=== PATIENT | female | born 1955 | race Caucasian/White ===

== ENCOUNTER 2023-08-26 06:00 | Outpatient (CLI) | payer MEDICARE, SELFPAY ==
--- NOTE | 2023-08-26 06:23 | NM_ITS ---
APPROVED REPORT Exam: Nuclear Stress Test Indication: SOB, CAD, HTN, High cholesterol, Family history Patient Location: Outpatient Stress Tech: Trina Nye [place] Tech:Lanie Rodriguez, ARRT, RT (R)(N) Ht: 5 ft 2 in Wt: 125 lbs Bra Size: 36C HR: 59 bpm BP: 159/60 mmHg BSA: 1.57 m2 Rhythm: NSR TID: 1.22 BMI: 22.8 History: SOB, CAD, HTN, High cholesterol, Family history Procedure: Patient exercised on Fermin protocol 3:50 minutes and sec, resting heart rate 59 bpm, resting blood pressure 159/60 mmHg, with exercise maximum heart rate achived was 134 bpm which is 89 % of the maximum predicted heart rate and blood pressure was 203/64 mmHg. Test was stopped due to SOB. Patient denied any complaint of chest pain. Patient has Fair exercise capacity, achieved 4.6 METs of workload on treadmill, the blood pressure response to exercise was Hypertensive. Cardiac Stress and Resting SPECT Images: Cardiac Stress and Resting SPECT images were obtained using technetium 99m Myoview 30.5 mCi stress and 10.76 mCi at rest. Resting and stress imaging in supine and prone positions demonstrate no evidence of fixed or reversible perfusion defects. There is increase in transient ischemic dilatation ratio (TID 1.22), suggestive of possible multivessel disease or balanced ischemia. Gated imaging demonstrates normal global and regional LV systolic function. LVEF is calculated at 60%. Conclusion: No evidence of fixed or reversible perfusion defects. Increase in transient ischemic dilatation ratio (TID 1.22), suggestive of possible multivessel disease or balanced ischemia. Gated imaging demonstrates normal global and regional LV systolic function. LVEF is calculated at 60%. Of note, the patient had a hypertensive BP response to exercise. Further BP control is recommended. Electronically signed by : Mariola Hallman MD 08/27/2023 12:09:46
--- NOTE | 2023-08-26 07:28 | CA_ITS ---
APPROVED REPORT EXAM: Comprehensive 2D, Doppler, and color-flow Echocardiogram Manga Artist: Calli Whitlock CRT Ht: 5 ft 2 in Wt: 124lbs BSA: 1.56 BP: 142/82 mmHg Indications: Shortness of Breath, CAD, Hyperlipidemia 2D Dimensions LA Volume 38.10 mL LA Volume Index 23.80 mL/m2 (M/F) 16-34 M-Mode Dimensions RVDd 2.81 cm (0.9-2.6) LA Diam 3.46 cm (1.9-4.0) LVDd 3.74 cm (3.5-5.7) LVDs 1.96 cm (3.5-5.7) IVSd 1.25 cm (0.6-1.1) PWd 1.32 cm (0.6-1.1) EF (Teich) 79.70% FS 47.60% EDV (Teich) 59.60 mL TAPSE 2.19 (<1.7) ESV (Teich) 12.10 mL LV Diastology E Decel Time 150 (160-240 msec) E/A Ratio 1.35 MED A' 9.90 cm/s LAT A' 12.90 cm/s Aortic Valve AO Peak GR. 9.40 mmHg Mitral Valve MV E Max Parish. 89.0 (40-130 cm/s) MV A Velocity 66.0 (40-130 cm/s) E/A Ratio 1.35 MV PHT 44.0 ms Pulmonary Valve PV Peak Velocity 106.0 (50-150 cm/s) Tricuspid Valve TR P. Velocity 210.00 cm/s RAP Estimate 10.00 mmHg RVSP 27.60 mmHg Left Ventricle The left ventricle is normal size. The left ventricular systolic function is normal. The left ventricular ejection fraction is within the normal range. There is normal left ventricular wall thickness. There is normal LV segmental wall motion. The left ventricular diastolic function is normal. LVEF is 55%. Right Ventricle The right ventricle is normal size. The right ventricular systolic function is normal. Atria The left atrium size is normal. The right atrium size is normal. There is no Doppler evidence of interatrial shunt. Aortic Valve The aortic valve is mildly thickened. There is no aortic valvular stenosis. Trace aortic regurgitation. Mitral Valve The mitral valve is mildly thickened. No evidence of mitral valve stenosis. Trace mitral regurgitation. Tricuspid Valve The tricuspid valve leaflets are thin and pliable. Trace tricuspid regurgitation. RVSP is normal. Pulmonic Valve The pulmonary valve is normal in structure. Trace pulmonic regurgitation. Great Vessels The aortic root is normal in size. The ascending aorta is not well visualized. IVC is normal in size and collapses >50% with inspiration. Pericardium There is no pericardial effusion. Other Information Study Quality: Fair Conclusion Normal biventricular systolic function. No significant valvular stenosis or regurgitation. Electronically signed by : Mariola Hallman MD 08/30/2023 18:02:24
[2023-08-26] MEDS: ISOTOPE MYOVIEW (PER STUDY) 1 DOSE IV (08:17)
[2023-08-26] MEDS: SODIUM CHLORIDE 0.9% 10ML SYR (RAD ONLY) 10 ML IV ×2 (08:17)
--- NOTE | 2023-08-26 09:00 | CA_ITS ---
APPROVED REPORT Exam: Exercise Treadmill Technologist: Trina Nye Ht: 5 ft 2 in Wt: 125 lbs BSA: 1.57 m2 HR: 55 bpm BP: 159/60 mmHg Rhythm: NSR Indications: R94.31, I25.10 Medical History Medications: Atorvastatin,,,,, Prolia,,,,, Stress Test Details Test: Fermin HR Resting HR: 59 bpm Max Heart Rate (APMHR): 150 bpm Max HR Achieved: 134 bpm Target HR (85% APMHR): 128 bpm % of APMHR: 89 Recovery HR: 74 bpm HR response to stress: Normal HR response to stress BP Resting BP: 159.0/60.0 mmHg Max BP: 203.0/64.0 mmHg Recovery BP: 168.0/66.0 mmHg BP response to stress: Abnormal hypertensive response to stress. ECG Resting ECG: Sinus arrhythmia, bradycardia, rightward axis Stress ECG: < 0.[address] depression Arrhythmia: None Clinical Exercise duration: 03:50 min Highest Stage Achieved: Exercise capacity: 4.6 METs Overall Exercise Capacity for Age: Fair Stress ECG Conclusion The patient was able to exercise for a total of 3 minutes, 15 seconds. She achieved a total of 4.6 METS. She has fair exercise capacity compared to age and sex matched peers. She has normal HR, but exaggerated hypertensive BP, response to exercise. Symptoms: Shortness of air, no chest pain. Arrhythmias/Ectopy: Marked sinus arrhythmia in recovery. ST-T Changes: 0.[address] depression Conclusion: Exercise capacity. Hypertensive BP response to exercise. No evidence of ischemia on ECG at peak stress. Myoview images reported separately. Test Summary REST . . . . . . . Sitting REST 04:26 0.0 0.0 59 . 159/ 60 . . Stage 1 01:00 10.0 1.7 102 . . . . Stage 1 . . . . . . . Shortness of Breath Stage 1 02:00 10.0 1.7 122 . . . . Stage 1 . . . . . . . Stage held Stage 1 . . . . . . . Myoview Injected Stage 1 03:00 10.0 1.7 129 . . . . Stage 1 . . . . . . . Stage resumed Stage 1 03:50 10.0 1.7 133 . . . Stop exercise at 03:50 RECOVERY 01:00 0.0 0.0 101 . . . . RECOVERY 02:00 0.0 0.0 93 . 203/ 64 . . RECOVERY 03:00 0.0 0.0 75 . 203/ 64 . . RECOVERY 04:00 0.0 0.0 71 . 163/ 71 . . RECOVERY 05:00 0.0 0.0 74 . 168/ 66 . . RECOVERY 05:20 0.0 0.0 79 . 168/ 66 . . Electronically signed by : Mariola Hallman MD 08/27/2023 12:07:12
== END 2023-08-26 23:59 ==
LOC: RAD 06:00
PROVIDERS: PCP Physician Assistant; Visit Provider Nurse Practitioner Family
DX: I25.10 Atherosclerotic heart disease of native coronary artery without angina pectoris (principal); R94.31 Abnormal electrocardiogram [ECG] [EKG]; E78.5 Hyperlipidemia, unspecified; R06.09 Other forms of dyspnea; R91.8 Other nonspecific abnormal finding of lung field; Z87.891 Personal history of nicotine dependence
CPT/HCPCS: 78452; 93017; 93018; 93306; A9502

== ENCOUNTER 2023-09-22 11:38 | Outpatient (CLI) | payer MEDICARE, SELFPAY ==
--- NOTE | 2023-09-22 11:39 | CT_ITS ---
APPROVED REPORT Od Grinder Operator: CLINICAL INDICATION Chest Pain TECHNIQUE Image Acquisition: A 128 slice MDCT scanner ([employer]akGlobal[employer] View) was used for data acquisition. A noncontrast coronary calcium scan was performed. A CT attenuation threshold of 130 Hounsfield units (HU) was used for the detection of calcium in contiguous voxels of 1 sq mm in area to be counted as individual lesions. Bolus tracking in the ascending aorta with a threshold of 180 HU was performed. Immediately afterwards, ECG synchronized cardiac CT was then performed from the cardiac base to apex using retrospective gating with ECG tube current modulation. A total of 85 mL of Isovue 370 mg/mL contrast medium was administered at 5 mL/sec followed by a saline flush using a biphasic injection protocol. A tube voltage of 120 KVp was used. The patient received the following medications prior to the cardiac CT. 0.8 mg of sublingual nitroglycerin The average heart rate at the time of acquisition was 63 bpm and regular. Image Reconstruction Transaxial images were reconstructed at 0.67 mm slide thickness. Data was reviewed interactively on an advanced workstation capable of 2 and 3-dimensional displays in all conventional reconstruction formats, including multiplanar reformations, maximum intensity projections, curved multiplanar reformations, and volume rendered reconstructions. When applicable, selected routine images describing the relevant coronary anatomy and pathology were saved and sent to PACS. Complications None Technical Quality Overall image quality was good. Coronary artery opacification was adequate. Total DLP (Dose-Length Product) is 1667.6 mGy-cm. The reported value represents the total of one or more individual components during the CT acquisition of this date and at this time, and as such, the same value may appear in more than one CT report depending on the interpreting/reporting physicians. COMPARISON None FINDINGS CT Coronary Calcium Scoring LMA (Left Main Artery) = 34 LAD (Left Anterior Descending) = 493 LCX (Left Coronary Circumflex) = 0 RCA (Right Coronary Artery) = 10 Total Calcium Score = 537 using the AJ-130 method. The observed calcium score of 537 is at 93rd percentile for subjects of the same age, sex, and race/ethnicity. The interpretation of the calcium heart score is based on the following continuum*: 0 = no calcified plaque detected (risk of coronary artery disease is very low ??? less than 5%) 1-10 = calcium detected in extremely minimal levels (risk of coronary diseases is still low ??? less than 10%) 11-100 = mild levels of plaque detected with certainty (mild or minimal narrowing of heart arteries is likely) 101-400 = definite,at least moderate levels of plaque detected (relatively high risk of a heart attack within 3-5 years) >401-999 = extensive levels of plaque detected (high risk of heart attack, high levels of vascular disease are present, high likelihood of at least one significant coronary narrowing) *The calcium heart score quantifies the burden of coronary calcification/plaque in the coronary arteries. The calcium heart score is not able to evaluate the presence or burden of non-calcified (i.e. soft) plaque. There is also identifiable calcification in the ascending and descending thoracic aorta. Coronary CT Angiography The coronary arterial system is right dominant. Quantitative Stenosis Grading: Left Main (LM): The left main originates normally from the left sinus of Valsalva. The LM bifurcates into the left anterior descending artery and left circumflex artery. There is calcified plaque in the distal LM, but with no evidence of luminal stenosis. Left Anterior Descending (LAD) and Diagonal Branches: The LAD gives off 2 diagonal branches. There is mixed calcified/noncalcified plaque along the proximal and mid LAD, with up to 25-49% luminal stenosis. There is no evidence of LAD-myocardial bridge. Left Circumflex (LCX) and Obtuse Marginals (OM): The LCX gives off 1 Obtuse Marginal (OM) branch. The LCX and its branches are patent with no evidence of atherosclerosis. Right Coronary Artery (RCA): The RCA originates normally from the right sinus of Valsalva. The RCA gives off a posterior descending artery (PDA) and posterolateral (PL) branches. There is focal calcified plaque in the proximal RCA, but with no luminal stenosis. Non-Coronary Cardiac Findings: Analysis of the left ventricular (LV) structure and function was performed after 3-D reconstruction of the LV from axial images, with user-corrected automatic contouring for assessment of LV volumes and user-defined reconstruction from oblique planes for measurement of 3-D cardiac structure and function. -The left ventricle systolic function is normal. -There is no left atrial appendage filling defect. Two right pulmonary veins and two left pulmonary veins drain normally into the left atrium. -No pericardial thickening or calcification. -Central and branch pulmonary arteries in the [id number] are unremarkable. -Thoracic aorta within the visualized thoracic aortic-branches in the [id number] is unremarkable. Extracardiac Structures No significant extra-cardiac findings. Note, however, that this study is focused on the cardiac findings. IMPRESSION -Presence of coronary calcification with an Agatston score = 537 using the AJ-130 method. -The observed calcium score of 537 is at 93rd percentile for subjects of the same age, sex, and race/ethnicity. -Atherosclerotic plaque in the proximal and mid LAD, but with no evidence of significant flow-limiting atherosclerosis of the coronary arteries. -CAD-RADS 2. Management recommendations per ACC/AHA guidelines*, as clinically appropriate. *Recommendations: CAD RADS 0: Reassurance. Consider non-atherosclerotic causes of chest pain. CAD RADS 1: Consider non-atherosclerotic causes of chest pain. Consider preventive therapy and risk factor modification. CAD RADS 2: Consider non-atherosclerotic causes of chest pain. Consider preventive therapy and risk factor modification, particularly for patients with nonobstructive plaque in multiple segments. CAD RADS 3: Consider further functional testing. Consider symptom-guided anti-ischemic and preventive pharmacotherapy as well as risk factor modification per published guideline statements. CAD RADS 4A: Consider further functional testing or invasive coronary angiography with revascularization per published guideline statements. Consider symptom-guided anti-ischemic and preventive pharmacotherapy as well as risk factor modification per published guideline statements. CAD RADS 4B: Invasive coronary angiography recommended with revascularization per published guideline statements. Consider symptom-guided anti-ischemic and preventive pharmacotherapy as well as risk factor modification per published guideline statements. CAD RADS 5: Consider invasive angiography and/or viability assessment with revascularization per published guideline statements. Consider symptom-guided anti-ischemic and preventive pharmacotherapy as well as risk factor modification per published guideline statements. CRITICAL RESULT None COMMUNICATION Per this written report The coronary and cardiac findings of this CCTA were reviewed, reported, and signed by Benson Hallman MD (Cans Vacuum Tester) Conclusion Electronically signed by : Mariola Hallman MD 09/29/2023 10:24:43
[2023-09-22 11:49] VITALS: BMI 22.8
[2023-09-22 12:08] LABS: Chloride 109 mmol/L (98-107); Potassium 4.1 mmoL/L (3.5-5.1); Sodium 139 mmol/L (136-145)
[2023-09-22 12:10] LABS: Blood Urea Nitrogen 12 mg/dl (7-17); Creatinine Clearance Estimated 47 mL/min (50-200); Estimated Glomerular Filt Rate 71 ml/min (>60); GFR (African American) 86 ML/MIN (>60)
[2023-09-22 12:11] LABS: Anion Gap 5.1 mEq/L (5-15); Calcium 9.1 mg/dl (8.4-10.2); Carbon Dioxide 29 mmol/L (22.0-30.0); Glucose 91 mg/dl (74-100)
[2023-09-22 12:20] VITALS: BP 178/84; PULSE 62; RESP 16; O2SAT 100
[2023-09-22] MEDS: NITROGLYCERIN 0.4MG SL TABLET 0.800000000000000044 MG SL (12:20)
[2023-09-22 12:23] VITALS: BP 146/90; PULSE 61; RESP 18; O2SAT 99
[2023-09-22 12:30] VITALS: BP 135/77; PULSE 59; RESP 18; O2SAT 99
[2023-09-22] MEDS: METOPROLOL TARTRATE 5MG/5ML VIAL *IVABRADINE+METOPROLOL REGIMINE 5 MG IV (12:30)
[2023-09-22 12:32] VITALS: BP 144/72; PULSE 74; RESP 18; O2SAT 99
[2023-09-22 12:40] VITALS: BP 140/85; PULSE 58; RESP 16; O2SAT 99
[2023-09-22] MEDS: 0.9 % SODIUM CHLORIDE 50 ML VIAL IV (12:43)
[2023-09-22] MEDS: SODIUM CHLORIDE 0.9% 10ML SYR (RAD ONLY) 10 ML IV (12:43)
[2023-09-22] MEDS: IOPAMIDOL-370 (76%);100ML BOTTLE 85 ML IV (12:43)
== END 2023-09-22 12:42 | disposition home or self-care (01) ==
PROVIDERS: PCP Physician Assistant; Visit Provider Nurse Practitioner Family
DX: R93.1 Abnormal findings on diagnostic imaging of heart and coronary circulation (principal); I25.10 Atherosclerotic heart disease of native coronary artery without angina pectoris; Z87.891 Personal history of nicotine dependence; R94.31 Abnormal electrocardiogram [ECG] [EKG]
CPT/HCPCS: 75571; 75574; 80048; Q9967

== ENCOUNTER 2024-04-20 09:12 | Outpatient (CLI) | payer MEDICARE, SELFPAY ==
[2024-04-20 09:53] LABS: Basophils # 0.1 K/mm3 (0-0.2); Basophils % 0.8 % (0.1-2.0); Eosinophils # 0.2 K/mm3 (0.0-0.4); Eosinophils % 2.4 % (0.1-12.0); Hematocrit 42.8 % (37.0-47.0); Hemoglobin 14.1 g/dL (12.2-16.2); Lymphocytes # 2.1 K/mm3 (0.7-4.5); Lymphocytes % 25.8 % (10-50); Mean Corpuscular HGB Conc 32.9 g/dL (31.8-35.4); Mean Corpuscular Hemoglobin 33.3 pg (27.0-31.2); Mean Corpuscular Volume 101.2 fl (81-99); Mean Platelet Volume 8.5 fl (7.4-10.4); Monocytes # 0.4 K/mm3 (0.1-1.0); Monocytes % 5.1 % (1.7-9.3); Neutrophils # 5.5 K/mm3 (1.8-7.8); Platelet Count 233 K/mm3 (142-424); Red Blood Count 4.23 M/mm3 (4.20-5.40); Red Cell Distribution Width 13.3 % (11.5-17.5); White Blood Count 8.3 K/mm3 (4.8-10.8)
[2024-04-20 10:20] LABS: Alanine Aminotransferase 28 U/L (12-78); Albumin Level 4.2 g/dl (3.5-5.0); Alkaline Phosphatase 70 U/L (38-126); Anion Gap 10.4 mEq/L (5-15); Aspartate Amino Transferase 30 U/L (14-36); Bilirubin,Direct 0.3 mg/dl (0.0-0.4); Bilirubin,Indirect 0.3 mg/dL (0.0-0.9); Bilirubin,Total 0.6 mg/dl (0.2-1.3); Bilirubin,Unconjugated 0.3 mg/dL (0.0-1.1); Blood Urea Nitrogen 14 mg/dl (7-17); Calcium 9.8 mg/dl (8.4-10.2); Carbon Dioxide 26 mmol/L (22.0-30.0); Chloride 111 mmol/L (98-107); Chol/HDL Ratio 2.4 (1-3.5); Cholesterol 184 mg/dl (140-200); Estimated Glomerular Filt Rate 71 ml/min (>60); GFR (African American) 86 ML/MIN (>60); Glucose 89 mg/dl (74-100); HDL Cholesterol 76 mg/dl (40-60); Magnesium 2.1 mg/dl (1.6-2.3); Potassium 5.4 mmoL/L (3.5-5.1); Sodium 142 mmol/L (136-145); Total Protein,Serum 6.1 g/dl (6.3-8.2); Triglycerides 85 mg/dl (30-150); VLDL Cholesterol 17 mg/dL (0-40)
[2024-04-20 10:31] LABS: Direct LDL Cholesterol 98.29 mg/dL (100-129)
== END 2024-04-20 23:59 | disposition home or self-care (01) ==
LOC: LAB 09:15
PROVIDERS: PCP Physician Assistant; Visit Provider Physician Assistant
DX: E78.2 Mixed hyperlipidemia (principal); I25.118 Atherosclerotic heart disease of native coronary artery with other forms of angina pectoris; R94.31 Abnormal electrocardiogram [ECG] [EKG]; R91.8 Other nonspecific abnormal finding of lung field
CPT/HCPCS: 36415; 80048; 80061; 80076; 83735; 85025

== ENCOUNTER 2025-04-17 09:00 | Outpatient (CLI) | payer MEDICARE, SELFPAY ==
[2025-04-17 09:51] LABS: Hematocrit 45.8 % (37.0-47.0); Hemoglobin 14.7 g/dL (12.2-16.2); Immature Granulocytes % 0.6 %; Mean Corpuscular HGB Conc 32.1 g/dL (31.8-35.4); Mean Corpuscular Hemoglobin 31.5 pg (27.0-31.2); Mean Corpuscular Volume 98.3 fl (81-99); Nucleated Red Blood Cells % 0 %; Platelet Count 234 K/mm3 (142-424); Red Blood Count 4.66 M/mm3 (4.20-5.40); Red Cell Distribution Width-SD 49.9 fL; White Blood Count 7.0 K/mm3 (4.8-10.8)
[2025-04-17 10:24] LABS: Albumin Level 4.5 g/dl (3.5-5.0); Chloride 105 mmol/L (98-107); Potassium 4.6 mmoL/L (3.5-5.1); Sodium 139 mmol/L (136-145)
[2025-04-17 10:26] LABS: Blood Urea Nitrogen 19 mg/dl (7-17); Creatinine,Serum 0.90 mg/dl (0.52-1.04); Estimated Glomerular Filt Rate 62 ml/min (>60); GFR (African American) 75 ML/MIN (>60)
[2025-04-17 10:27] LABS: Alanine Aminotransferase 25 U/L (12-78); Alkaline Phosphatase 57 U/L (38-126); Anion Gap 11.6 mEq/L (5-15); Aspartate Amino Transferase 32 U/L (14-36); Bilirubin,Direct 0.2 mg/dl (0.0-0.4); Bilirubin,Indirect 0.5 mg/dL (0.0-0.9); Bilirubin,Total 0.7 mg/dl (0.2-1.3); Bilirubin,Unconjugated 0.5 mg/dL (0.0-1.1); Calcium 9.7 mg/dl (8.4-10.2); Carbon Dioxide 27 mmol/L (22.0-30.0); Cholesterol 191 mg/dl (140-200); Glucose 95 mg/dl (74-100); HDL Cholesterol 82 mg/dl (40-60); Magnesium 1.9 mg/dl (1.6-2.3); Total Protein,Serum 7.1 g/dl (6.3-8.2); Triglycerides 61 mg/dl (30-150)
[2025-04-17 10:43] LABS: Free T4 (Free Thyroxine) 0.96 ng/dl (0.78-2.19)
[2025-04-17 11:00] LABS: Thyroid Stimulating Hormone 1.23 uIU/mL (0.465-4.68)
== END 2025-04-17 23:59 | disposition home or self-care (01) ==
LOC: LAB 09:01
PROVIDERS: PCP Physician Assistant; Visit Provider Nurse Practitioner Family
DX: I25.10 Atherosclerotic heart disease of native coronary artery without angina pectoris (principal); E78.5 Hyperlipidemia, unspecified
CPT/HCPCS: 36415; 80048; 80061; 80076; 83735; 84439; 84443; 85025